=== PATIENT | female | born 1990 | race Caucasian/White ===

== ENCOUNTER 2019-05-02 06:11 | Emergency (ER) | payer BC ==
[~2019-05-02] VITALS: Ht 170.2 cm; Wt 75.9 kg
[~2019-05-02 06:11] MED LIST: NO HOME MEDICATIONS
[2019-05-02 06:20] VITALS: BP 120/66; TEMP 97.2
[2019-05-02 06:43] LABS: COLLECTION METHOD CLEAN CATCH
[2019-05-02 06:51] LABS: PH 6 (5-8); SQUAMOUS EPITHELIAL 0-2 /hpf; URINE APPEARANCE Clear; URINE BACTERIA None Seen /hpf; URINE BILIRUBIN Negative (NEGATIVE); URINE BLOOD Negative (NEGATIVE); URINE COLOR Straw; URINE GLUCOSE Negative (NEGATIVE); URINE KETONE Negative (NEGATIVE); URINE LEUKOCYTE ESTERASE Negative (NEGATIVE); URINE NITRATE Negative (NEGATIVE); URINE PROTEIN(semi-quant) Negative (NEGATIVE); URINE RBC None Seen /hpf; URINE UROBILINOGEN Negative (NEGATIVE)
[2019-05-02 07:03] LABS: TRICYCLIC ANTIDEPRESS URINE NEGATIVE
[2019-05-02 07:21] LABS: BASO # 0.1 (0.0-0.2); BASO % 0.5 % (0.0-2.0); EOS # 0.3 (0.0-0.7); EOS % 2.8 % (0-4.0); GRAN # 6.3 (1.4-6.5); GRAN % 59.5 % (42.2-75.2); HEMATOCRIT 42.6 % (37.0-47.0); HEMOGLOBIN 14.3 g/dl (12.5-16.0); LYMPH # 3.2 (1.2-3.4); LYMPH % 29.9 % (20.0-51.0); MEAN CELL VOLUME 97 fl (80.0-100.0); MEAN CORPUSCULAR HEMOGLOBIN 33 pg (27.0-31.0); MEAN CORPUSCULAR HGB CONC 34 g/dl (33.0-37.0); MEAN PLATELET VOLUME 10.1 fl (7.4-10.4); MONO # 0.7 (0.1-0.6); MONO % 6.9 % (1.7-9.3); PLATELET COUNT 299 K/mm3 (130-400); RED BLOOD COUNT 4.39 M/mm3 (4.10-5.30); REDCELL DISTRIBUTION WIDTH-CV 12.3 % (11.5-14.5)
[2019-05-02 07:42] LABS: ALANINE AMINOTRANSFERASE 24 U/L (9-52); ALBUMIN 4.6 gm/dL (3.5-5.0); ALKALINE PHOSPHATASE 53 U/L (50-136); ANION GAP 9 mmol/L (7-16); AST,SGOT 25 U/L (15-37); BILIRUBIN,TOTAL 0.2 mg/dL (0.0-1.0); BLOOD UREA NITROGEN 7 mg/dL (7-17); CALCIUM 9.2 mg/dL (8.4-10.2); CARBON DIOXIDE 24 mmol/L (22-30); CHLORIDE 108 mmol/L (98-107); CREATININE, serum 0.71 (0.52-1.25); GLUCOSE 89 mg/dL (74-106); POTASSIUM 3.9 mmol/L (3.4-5.0); SODIUM 141 mmol/L (137-145); TOTAL PROTEIN 7.3 gm/dL (6.4-8.2)
[2019-05-02 07:52] LABS: ACETAMINOPHEN < 10 ug/mL (10-30); ALCOHOL(ethanol),MEDICAL < 10 mg/dL
[2019-05-02 07:53] LABS: SALICYLATE < 1.0 mg/dL
[2019-05-02 12:22] VITALS: PULSE 78
== END 2019-05-02 12:22 | disposition home or self-care (01) ==
LOC: COL.ER 06:11
PROVIDERS: Emergency Medicine
DX: R45.851 Suicidal ideations (principal); F32.9 Major depressive disorder, single episode, unspecified

== ENCOUNTER 2019-05-27 00:27 | Emergency (ER) | payer BC ==
[~2019-05-27] VITALS: Ht 170.2 cm; Wt 77.3 kg
[2019-05-27 00:32] VITALS: TEMP 98.4
[2019-05-27 01:17] LABS: COLLECTION METHOD CLEAN CATCH
[2019-05-27 01:26] LABS: PH 6 (5-8); SQUAMOUS EPITHELIAL None Seen /hpf; URINE APPEARANCE Clear; URINE BACTERIA None Seen /hpf; URINE BILIRUBIN Negative (NEGATIVE); URINE BLOOD 1+ (NEGATIVE); URINE COLOR Colorless; URINE GLUCOSE Negative (NEGATIVE); URINE KETONE Negative (NEGATIVE); URINE LEUKOCYTE ESTERASE Negative (NEGATIVE); URINE NITRATE Negative (NEGATIVE); URINE PROTEIN(semi-quant) Negative (NEGATIVE); URINE RBC 0-2 /hpf; URINE UROBILINOGEN Negative (NEGATIVE)
[2019-05-27 01:36] LABS: TRICYCLIC ANTIDEPRESS URINE NEGATIVE
[2019-05-27 02:17] LABS: BASO # 0.1 (0.0-0.2); BASO % 0.5 % (0.0-2.0); EOS # 0.3 (0.0-0.7); EOS % 2.2 % (0-4.0); GRAN % 60.4 % (42.2-75.2); HEMATOCRIT 41.3 % (37.0-47.0); HEMOGLOBIN 14.1 g/dl (12.5-16.0); LYMPH # 3.7 (1.2-3.4); LYMPH % 31.8 % (20.0-51.0); MEAN CELL VOLUME 94 fl (80.0-100.0); MEAN CORPUSCULAR HEMOGLOBIN 32 pg (27.0-31.0); MEAN CORPUSCULAR HGB CONC 34 g/dl (33.0-37.0); MEAN PLATELET VOLUME 10.1 fl (7.4-10.4); MONO # 0.6 (0.1-0.6); MONO % 4.8 % (1.7-9.3); PLATELET COUNT 258 K/mm3 (130-400); RED BLOOD COUNT 4.38 M/mm3 (4.10-5.30); REDCELL DISTRIBUTION WIDTH-CV 11.9 % (11.5-14.5)
[2019-05-27 02:29] LABS: ACETAMINOPHEN < 10 ug/mL (10-30); ALANINE AMINOTRANSFERASE 16 U/L (9-52); ALCOHOL(ethanol),MEDICAL 162 mg/dL; ALKALINE PHOSPHATASE 50 U/L (50-136); ANION GAP 16 mmol/L (7-16); AST,SGOT 19 U/L (15-37); BILIRUBIN,TOTAL 0.3 mg/dL (0.0-1.0); BLOOD UREA NITROGEN 10 mg/dL (7-17); CALCIUM 9.7 mg/dL (8.4-10.2); CARBON DIOXIDE 18 mmol/L (22-30); CHLORIDE 111 mmol/L (98-107); CREATININE, serum 0.72 (0.52-1.25); GLUCOSE 122 mg/dL (74-106); POTASSIUM 3.8 mmol/L (3.4-5.0); SALICYLATE < 1.0 mg/dL; SODIUM 144 mmol/L (137-145); TOTAL PROTEIN 8.1 gm/dL (6.4-8.2)
[2019-05-27 13:19] VITALS: BP 119/84; PULSE 77
== END 2019-05-27 13:21 | disposition home or self-care (01) ==
LOC: COL.ER 00:27
PROVIDERS: Emergency Medicine
DX: F10.129 Alcohol abuse with intoxication, unspecified (principal); F31.9 Bipolar disorder, unspecified; Y90.6 Blood alcohol level of 120-199 mg/100 ml
CPT/HCPCS: J1630; J2060